=== PATIENT | male | born 1950 | race Caucasian/White ===

== ENCOUNTER 2020-03-13 08:09 | Outpatient (CLI) | payer MEDICARE, OTHER, SELFPAY ==
--- NOTE | ~2020-03-13 | CT_ITS ---
EXAMINATION: CT brain wo con EXAM DATE: 03/13/2020 08:41 INDICATION: Dizziness. TECHNIQUE: Spiral CT of the head was performed without contrast. Axial, coronal and sagittal images were reviewed. The dose-length product (DLP) for this examination was 605.33 mGy-cm. The exposure w as tailored according to patient size, and iterative reconstruction (ASIR) was used as additional dos e reduction technique. There is no prior study for comparison. FINDINGS: There is calvarial lesion in the left frontal bone measuring 8 mm in diameter, with permeat kimi appearance to both the inner and outer tables. There is a 2nd smaller region of similar appearanc e in the left frontal bone slightly higher up. Differential diagnosis includes intraosseous venous si nus, Paget's disease, metastatic disease, multiple myeloma. Consider follow-up brain MRI examination without and with contrast, could potentially distinguish benign from malignant etiologies. There is no acute intraparenchymal hemorrhage. No evidence of intraparenchymal brain mass lesion. N o evidence of acute infarction. There is no mass effect or midline shift. The ventricles are normal in size. There are no extra-axial collections. There are no acute calvarial fractures. The orbits are unremarkable. Soft tissue is unremarkable. The visualized sinuses and mastoid air cells are wel l aerated. IMPRESSION: 1. No acute intracranial findings. 2. Two small frontal bone permeative regions, both benign and malignant etiologies possible. Conside r brain MRI without and with contrast for further evaluation. Reviewed, dictated and finalized at location G. IMPRESSION: 1. No acute intracranial findings. 2. Two small frontal bone permeative regions, both benign and malignant etiolo gies possible. Consider brain MRI without and with contrast for further evaluat ion.
== END 2020-03-13 08:10 | disposition home or self-care (01) ==
PROVIDERS: PCP Internal Medicine Infectious Disease; Visit Provider Psychiatry & Neurology Neurology
DX: R42 Dizziness and giddiness (principal); R93.0 Abnormal findings on diagnostic imaging of skull and head, not elsewhere classified
CPT/HCPCS: 70450

== ENCOUNTER 2020-05-12 08:25 | Outpatient (CLI) | payer MEDICARE, OTHER, SELFPAY ==
--- NOTE | 2020-05-12 12:00 | NEURO_ITS ---
PATIENT NUMBER: [id number] IMPRESSION: # Complains of numbness of toes. 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 # clinical correlation recommended Nerve Conduction Studies Anti Sensory Summary Table Stim Site NR Peak (ms) P-T Amp (?V) Site1 Site2 Delta-P (ms) Dist (cm) [place]mar (m/s) Left Sup Fibular Anti Sensory (Ant Lat Mall) 14 cm 4.1 5.3 14 cm Ant Lat Mall 4.1 16.0 39 Right Sup Fibular Anti Sensory (Ant Lat Mall) 14 cm NR 14 cm Ant Lat Mall 16.0 Left Sural Anti Sensory (Lat Mall) Calf 4.1 7.2 Calf Lat Mall 4.1 16.0 39 Right Sural Anti Sensory (Lat Mall) Calf NR Calf Lat Mall 16.0 Motor Summary Table Stim Site NR Onset (ms) O-P Amp (mV) Site1 Site2 Delta-0 (ms) Dist (cm) [place]mar (m/s) Left Peroneal Motor (Vastus Med) Ankle 7.6 1.7 Popit Ankle 10.8 42.0 39 Popit 18.4 1.2 Right Peroneal Motor (Vastus Med) Ankle 6.7 1.1 Popit Ankle 7.4 37.0 50 Popit 14.1 1.5 Left Tibial Motor (Abd Miguel Brev) Ankle 6.4 2.5 Knee Ankle 12.7 45.0 35 Knee 19.1 1.5 Right Tibial Motor (Abd Miguel Brev) Ankle 4.5 1.3 Knee Ankle 11.0 45.0 41 Knee 15.5 0.6 F Wave Studies NR F-Lat (ms) L-R F-Lat (ms) Left Peroneal (Mrkrs) (EDB) 61.56 3.28 Right Peroneal (Mrkrs) (EDB) 58.28 3.28 Left Tibial (Mrkrs) (Abd Hallucis) 61.09 0.31 Right Tibial (Mrkrs) (Abd Hallucis) 61.40 0.31 EMG Side Muscle Nerve Root Ins Act Fibs Amp Dur Recrt Comment Right AntTibialis Dp Br Fibular L4-5 Nml Nml Nml Nml Nml Right Gastroc Tibial S1-2 Nml Nml Nml Nml Nml Right Fibularis Long Sup Br Fibular L5-S1 Nml Nml Nml Nml Nml Right Flex Dig Long Tibial L5-S2 Nml Nml Nml Nml Nml Right Ext Dig Brev Dp Br Fibular L5, S1 Nml Nml Nml Nml Nml Left AntTibialis Dp Br Fibular L4-5 Nml Nml Nml Nml Nml Left Gastroc Tibial S1-2 Nml Nml Nml Nml Nml Left Fibularis Long Sup Br Fibular L5-S1 Nml Nml Nml Nml Nml Left Flex Dig Long Tibial L5-S2 Nml Nml Nml Nml Nml Left Ext Dig Brev Dp Br Fibular L5, S1 Nml Nml Nml Nml Nml MTDD
== END 2020-05-12 08:26 | disposition home or self-care (01) ==
LOC: ANHNEURO 08:26
PROVIDERS: PCP Internal Medicine Infectious Disease; Visit Provider Psychiatry & Neurology Neurology
DX: G62.9 Polyneuropathy, unspecified (principal)
CPT/HCPCS: 95886; 95910